=== PATIENT | female | born 1960 | race Hispanic/Latino ===

== ENCOUNTER 2016-08-18 16:25 | Emergency (ER) | payer OTHER ==
[~2016-08-18] VITALS: Ht 162.6 cm; Wt 110.5 kg
[~2016-08-18 16:25] MED LIST: ASPI-973 PO; ATOR20TA PO; AZIT500T5 PO; BENZ-12 PO; DULO20CA PO; FLUTICASONE PROPIONATE PO; GABA-502 PO; GLPZ5T PO; LANS30CA PO; LIDO700A6 TP; LISI-567 PO; LORA0.5T PO; METF500T4 PO; MUPI22OI2 TP; ONDA4TAB9 PO; OXYB5TAB35 PO; OXYC10TA8 PO; PRO AIR INHALER INH; TYLENOL 500 MG PO
[2016-08-18 16:28] VITALS: BP 152/86; PULSE 88; RESP 20; O2SAT 96
[2016-08-18] MEDS ORDERED: Ondansetron 2 mg/mL 2 mL Inj ONE ×2 (17:06→17:45)
--- NOTE | 2016-08-18 17:08 | ED.REPORT ---
HPI-Abd Pain F 40 and Over Date of Service Aug 18, 2016 ED Provider: Lucy Clarke History of Present Illness: 55-year-old female here for abdominal pain, nausea, vomiting onset earlier this afternoon. This morning she had chorizo and egg burrito, then many hours went by. AT about 3pm she was at a meeting and had an acute onset of diarrhea and nausea and vomiting. She then ate a little bit because she thought this could make her feel better. She then had another episode of vomiting and diarrhea. When she was vomiting she felt very lightheaded and like she wanted to pass out. She did not pass out. She has not tried oral intake since. She has not had a fever. She now complains of left sided abdominal pain. At the time of her vomiting started she had some acute onset chest pressure and pain. She also had acute onset of neck pain and head pain. She has had similar chest pain before and has been worked up and it never been her heart. She has been diagnosed with muscular pain in her chest and neck in the past and it feels similar to this. She has a history of diabetes, high blood pressure, hypercholesterolemia. No known sick contacts Nursing Notes Stated Complaint: VOMITING,DIARRHEA, CHEST PAIN Chief Complaint: General Complaint Nursing Notes Reviewed: Yes Allergies: Coded Allergies: Sulfa (Sulfonamide Antibiotics) (Verified Allergy, Unknown, UNKNOWN, 05/05) atenolol (Verified Allergy, Unknown, 05/05/16) fish oil (Verified Allergy, Unknown, UNKNOWN, 05/05/16) metoclopramide (Verified Allergy, Unknown, 05/05/16) naproxen (Verified Adverse Reaction, Severe, RASH BRAND NAME ALEVE ONLY, 05/05/16) hydromorphone (Verified Adverse Reaction, Intermediate, Rash, 05/05/16) ibuprofen (Verified Adverse Reaction, Intermediate, Rash BRAND NAME ADVIL ONLY, 05/05/16) morphine (Verified Adverse Reaction, Intermediate, Rash, 05/05/16) trimethoprim (Verified Adverse Reaction, Intermediate, Rash, 05/05/16) Scheduled ([flovent IH]) PO PRN ([Pro Air Inhaler]) 2 PUFFS INH PRN Aspirin (Aspirin) 81 Mg Tablet 81 MG PO DAILY Atorvastatin (Lipitor) 20 Mg Tablet 20 MG PO DAILY Azithromycin (Azithromycin) 500 Mg Tablet 500 MG PO DAILY Duloxetine (Cymbalta) 20 Mg Capsule 20 MG PO DAILY Gabapentin (Gabapentin) 300 Mg Capsule 600 MG PO HS Glipizide (Glipizide) 5 Mg Tablet 5 MG PO DAILY Lansoprazole (Lansoprazole) 30 Mg Capsule.dr 30 MG PO DAILY Lidocaine (Lidoderm) 700 Mg Adh..patch 1 PATCH TP UD Lisinopril (Lisinopril) 20 Mg Tablet 20 MG PO DAILY Metformin (Metformin) 500 Mg Tablet 500 MG PO NOON Metformin (Metformin) 500 Mg Tablet 1,000 MG PO AM AND HS Mupirocin (Mupirocin Ointment) 22 Gm Oint...g. 22 GM TP BID Oxybutynin Chloride ER (Ditropan XL) 5 Mg Tab.er.24 5 MG PO DAILY Scheduled PRN ([Tylenol 500 Mg]) 500 MG PO PRN PRN PRN For Pain Benzonatate (Tessalon Perle) 100 Mg Capsule 100 MG PO TID PRN PRN For Cough Lorazepam (Lorazepam) 0.5 Mg Tablet 0.5 MG PO TID PRN PRN For Anxiety Ondansetron ODT (Zofran ODT) 4 Mg Tablet 4 MG PO Q4H PRN PRN For Nausea Ondansetron ODT (Zofran ODT) 4 Mg Tablet 4 MG PO Q4H PRN PRN For Nausea oxyCODONE (oxyCODONE) 10 Mg Tablet 10 MG PO 5X DAY PRN PRN For Pain General Time Seen by MD: 16:56 Chief Complaint Abdominal pain, Diarrhea moderate, Nausea, Vomiting moderate Hx Obtained From: Patient Arrived By: Walk-in Sudden in Onset?: Yes Onset Occurred: 1 - 4 hours ago Symptom Duration: Waxes and wanes Progression since Onset: Intermittent Location: : LLQ: LUQ Radiation: : Back: Flank left: Flank right Severity: Current: Mild Severity: Maximum: Severe Associated with: Reports: Back pain, Chest pain, Diarrhea, Nausea, Vomiting, Denies: Fever Pertinent Negative: Pt denies other symptoms Recent Healthcare: Recent doctor visit Similar Sx Previous: Yes Past Medical History Past Medical History kidney stones Reports: Asthma, Diabetes mellitus, GERD, Hyperlipidemia, Hypertension Past Surgical History 2x back surgeries knee surgery Reports: Appendectomy, Cholecystectomy Smoking History Former Smoker Social History Alcohol Use: Denies alcohol use Drug Use: Denies drug use Other Social History: Good social support, Local resident Ambulatory Status Independent Review of Systems Basic Review of Systems Eyes: Vision NL, No discharge ENT: Hearing NL, No pain, No nasal congestion, No pharyngeal pain Hematologic: No bleeding, No bruising Endocrine: No cold intolerance, No heat intolerance, No weight gain, No weight loss Skin: No bruising, No rash, No itch Allergy / Immune: No allergy Neurologic: NL mental status, No weakness, No numbness Psychiatric: Normal thought content Constitutional: Denies: Chills, Fatigue, Fever Respiratory: Denies: Dyspnea on exertion, Non-productive cough, Shortness of breath, Wheezing Cardiovascular: Reports: Chest pain, Denies: Dyspnea on exertion, Edema GI: Reports: Abdominal pain, Diarrhea, Nausea, Vomiting, Denies: Constipation Female: Reports: Flank pain, Denies: Dysuria, Urinary frequency, Urinary urgency, Vaginal discharge Musculoskeletal: Reports: Back pain, Neck pain Complete sys rev & neg: except as marked. Physical Exam Vital Signs Vital Signs (First) Date Time Temp Pulse Resp B/P Pulse Ox O2 Delivery O2 Flow Rate FiO2 08/18/16 16:28 36.6 88 20 152/86 96 Room Air Initial VS: Reviewed, Vital signs normal Head / Eyes: Atraumatic, Normocephalic, PERRL ENT: Mucous membranes moist, Conjunctiva normal, No scleral icterus Neck: Supple, Non-tender, Full range of motion Lymphatic: No lymphadenopathy Extremities: Vascular intact, Neuro intact, No swelling, No tenderness Skin: Warm, Dry, No cyanosis Neurologic: Alert, Oriented, Nonfocal Psychiatric: Mood/affect normal, Behavior normal, Normal thought content General/Constitutional: Awake, Alert Respiratory / Chest: Breath sounds NL, Breath sounds = bilat, No respiratory distress, No rales, No rhonchi, No wheezing, No stridor Cardiovascular: Heart rate NL, Regular rhythm, Heart sounds NL, Peripheral circulation NL tender chest generalized Abdomen: Soft, McBurney's non-tender, No guarding, No rebound, BS normoactive, No distention, No hernia, No palpable mass, No pulsatile mass mild L upper and lower abd pain. +bilat cva tenderness Back: Inspection NL, No midline vertebral tend, No muscle spasm low back paraspinal msk tenderness, paracervical msk tender. Pt has FROM of neck. Pt has chronic low back pain Neck: Atraumatic, Supple, No meningismus, Full range of motion, No adenopathy Interpretation & Diagnostics Interpretation & Diagnostics: [phone] Patient Name: OLGA TRAN MR#: [id number] Location: SED Ordering Phys: Lucy Clarke [facility] Date of Service: 08/18/16 1735 PROCEDURE: X-RAY CHEST ONE VIEW, PORTABLE ([id number]) INDICATIONS: chest pain TECHNIQUE: One view of the chest was acquired. COMPARISON: Merged With [facility], CR, XR CHEST 2VW, 03/26/2016, 8:28. FINDINGS: Surgical changes and devices: None. Lungs and pleura: No pleural effusions or pneumothorax. Lungs are clear. Mediastinum: Mediastinal contours appear normal. Heart size is normal. Bones and chest wall: No suspicious bony lesions. Overlying soft tissues appear unremarkable. IMPRESSION: No acute process. Patient Name: OLGA TRAN MR#: [id number] Location: SED Ordering Phys: uLcy Clarke [facility] Date of Service: 08/18/16 1845 PROCEDURE: CT ABDOMEN AND PELVIS WITH CONTRAST ([id number]) INDICATIONS: llq abd pain TECHNIQUE: After the administration of intravenous contrast, 5 mm thick sections acquired from the diaphragm to the symphysis. 5 mm coronal and sagittal reformats were acquired. For radiation dose reduction, the following was used: automated exposure control, adjustment of mA and/or kV according to patient size. COMPARISON: Merged With [facility], CT, CT ABD PELVIS W CON, 01/11/2015, 1:23. Merged With [facility], CT, ABD/PELVIS W/CON (PNL), 11/20/2014, 17:35. FINDINGS: Image quality: Excellent. ABDOMEN: Lung bases: Lung bases are clear. Heart size is normal. Solid organs: Liver and spleen are normal in size and enhancement. Gallbladder is surgically absent. Biliary system is non dilated. Pancreas enhances normally. No adrenal nodules. Kidneys demonstrate normal size and enhancement, without hydronephrosis. Peritoneum and bowel: Small hiatal hernia. Bowel loops demonstrate normal wall thickness and caliber. No free fluid or air. Appendix not seen. No evidence of appendicitis. Nodes and vessels: No retroperitoneal or mesenteric adenopathy by size criteria. Aorta and inferior vena cava are normal in size. Miscellaneous: No ventral hernias. PELVIS: Genitourinary: Urinary bladder is decompressed. Miscellaneous: No inguinal hernias or adenopathy. Bones: No suspicious bony lesions. No vertebral body compression fractures. IMPRESSION: 1. No acute process. No explanation for left lower quadrant abdominal pain. 2. Appendix not seen. No evidence of appendicitis. Dictated by: Damien Ledezma M.D. on 08/18/2016 at 19:23 Approved by: Damien Ledezma M.D. on 08/18/2016 at 19:25 Lab Results Interpretation Result Diagram: 08/18/16 1700 08/18/16 1700 Test 08/18/16 17:00 08/18/16 19:42 White Blood Count 8.4th/mm3 (3.8-10.1) Red Blood Count 5.02mil/mm3 (3.90-5.20) Hemoglobin 13.4g/dL (12.0-15.6) Hematocrit 41.2% (35.0-46.0) Mean Corpuscular Volume 82.1fL (81-100) Mean Corpuscular Hemoglobin 26.7pg (27.0-35.0) Mean Corpuscular Hemoglobin Concent 32.5% (32.0-37.0) Red Cell Distribution Width 15.2% (12.3-15.4) Platelet Count 212bil/L (150-400) Neutrophils (%) (Auto) 74.1% (40-74) Lymphocytes (%) (Auto) 20.1% (14-46) Monocytes (%) (Auto) 4.2% (4-12) Eosinophils (%) (Auto) 1.1% (0-5) Basophils (%) (Auto) 0.4% (0-3) Sodium Level 140mEq/L (134-144) Potassium Level 4.1mEq/L (3.5-5.2) Chloride Level 103mEq/L (97-108) Carbon Dioxide Level 21mmol/L (18-29) Blood Urea Nitrogen 17mg/dL (6-24) Creatinine 0.65mg/dL (0.57-1.00) Estimat Glomerular Filtration Rate 135mL/min (>59) Glucose Level 247mg/dL (60-99) Calcium Level 8.9mg/dL (8.5-10.1) Magnesium Level 2.0mg/dL (1.6-2.6) Total Bilirubin 0.3mg/dL (0.0-1.2) Aspartate Amino Transf (AST/SGOT) 21U/L (0-50) Alanine Aminotransferase (ALT/SGPT) 22U/L (0-32) Alkaline Phosphatase 81U/L (25-150) Troponin T < 0.010ug/L (0.0-0.011) Total Protein 7.1g/dL (6.4-8.4) Albumin 3.7g/dL (3.4-5.0) Lipase 41U/L (13-60) Hold Su Top Tube Received (Received) Hold Urine Received (Received) Re-Eval/Medical Decision Med Decision/Clinical Course 1844- pt c/o her chronic back pain, and LLQ pain. cannot take dilaudid/morphine. can do toradol/oxycodone 10mg. will start with toradol. awaiting urine. UA with 30+ prot, 100+ gluc, trace blood. neg leucs. Denies dysuria. still LLQ pain 1999- discussed case with Dr. latonya liu. After his own evaluation agrees with discharge plan. Benign labs and CAT scan. will d/c home to monitor and f/u if pain returns/fevers/or worsening symptoms. LIkely abd strain from vomiting, possibly passed kidney stone. Discharge & Departure Shift Change Sign-Out Laboratory Evaluation: Lab evaluation discussed Imaging Studies: Imaging discussed Procedures: Results discussed Response to Therapy: Improved Primary Impression: Vomiting and diarrhea Additional Impressions: Lumbar back pain Chronicity: chronic Back pain laterality: left Sciatica presence: with sciatica Sciatica laterality: sciatica of left side Qualified Code: M54.42 - Lumbago with sciatica, left side Hematuria Diabetes mellitus Diabetes mellitus type: type 2 Diabetes mellitus complication status: with hyperglycemia Qualified Code: E11.65 - Type 2 diabetes mellitus with hyperglycemia Hypertension Hypertension type: essential hypertension Hypertension goal: unspecified goal Qualified Code: I10 - Essential (primary) hypertension Disposition: Home Discharge Condition All VS Reviewed: Yes Condition: Stable Patient Instructions: Acute Abdominal Pain (ED), Acute Diarrhea (ED) Additional Instructions: Monitor abdominal pain and return to ER if pain worsens, you get fevers, urinary symptoms, or severe vomiting or diarrhea. Otherwise treat your usual pain with pain meds as you see fit. Use Zofran as needed for nausea. Follow- up in 24 hours for recheck of your abdomen with your doctor. You need to recheck your urine as well with your PCP in the next 1-2 weeks.. Light diet as tolerated starting with fluids like water or chicken broth and gradually increasing to solid foods. Your exam was reassuring today but do not hesitate to return if things worsen or change. Referrals: Padmini Montes MD (PCP) EDSupervising Provider for APC: Sai Quinonez MD copies to: Sai Quinonez MD; Padmini Montes MD, Linnea K ARNP Aug 18, 2016 17:08
[2016-08-18 17:14] LABS: BASOPHILS % (AUTO) 0.4 % (0-3); EOSINOPHILS % (AUTO) 1.1 % (0-5); MONOCYTES % (AUTO) 4.2 % (4-12); Mean Corpuscular Hemoglobin 26.7 pg (27.0-35.0); Mean Corpuscular Volume 82.1 fL (81-100); NEUTROPHILS % (AUTO) 74.1 % (40-74); Platelet Count 212 bil/L (150-400)
[2016-08-18] MEDS ORDERED: 0.9% Sodium Chloride 1,000 ML IV ONE (17:35)
[2016-08-18 18:02] VITALS: BP 135/75; PULSE 83; RESP 16; O2SAT 97
--- NOTE | 2016-08-18 18:09 | DRSVH ---
PROCEDURE: X-RAY CHEST ONE VIEW, PORTABLE ([id number]) INDICATIONS: chest pain TECHNIQUE: One view of the chest was acquired. COMPARISON: [facility], CR, XR CHEST 2VW, 03/26/2016, 8:28. FINDINGS: Surgical changes and devices: None. Lungs and pleura: No pleural effusions or pneumothorax. Lungs are clear. Mediastinum: Mediastinal contours appear normal. Heart size is normal. Bones and chest wall: No suspicious bony lesions. Overlying soft tissues appear unremarkable. IMPRESSION: No acute process. Dictated by: Damien Ledezma M.D. on 08/18/2016 at 18:08 Approved by: Damien Ledezma M.D. on 08/18/2016 at 18:08
[2016-08-18 18:30] VITALS: BP 140/83; PULSE 76; RESP 16; O2SAT 97
--- NOTE | 2016-08-18 19:26 | DRSVH ---
PROCEDURE: CT ABDOMEN AND PELVIS WITH CONTRAST ([id number]) INDICATIONS: llq abd pain TECHNIQUE: After the administration of intravenous contrast, 5 mm thick sections acquired from the diaphragm to the symphysis. 5 mm coronal and sagittal reformats were acquired. For radiation dose reduction, the following was used: automated exposure control, adjustment of mA and/or kV according to patient kizzy johnson. COMPARISON: [facility], CT, CT ABD PELVIS W CON, 01/11/2015, 1:23. [facility], CT, ABD/PELVIS W/CON (PNL), 11/20/2014, 17:35. FINDINGS: Image quality: Excellent. ABDOMEN: Lung bases: Lung bases are clear. Heart size is normal. Solid organs: Liver and spleen are normal in size and enhancement. Gallbladder is surgically absent . Biliary system is non dilated. Pancreas enhances normally. No adrenal nodules. Kidneys demonstr ate normal size and enhancement, without hydronephrosis. Peritoneum and bowel: Small hiatal hernia. Bowel loops demonstrate normal wall thickness and caliber . No free fluid or air. Appendix not seen. No evidence of appendicitis. Nodes and vessels: No retroperitoneal or mesenteric adenopathy by size criteria. Aorta and inferior vena cava are normal in size. Miscellaneous: No ventral hernias. PELVIS: Genitourinary: Urinary bladder is decompressed. Miscellaneous: No inguinal hernias or adenopathy. Bones: No suspicious bony lesions. No vertebral body compression fractures. IMPRESSION: 1. No acute process. No explanation for left lower quadrant abdominal pain. 2. Appendix not seen. No evidence of appendicitis. Dictated by: Damien Ledezma M.D. on 08/18/2016 at 19:23 Approved by: Damien Ledezma M.D. on 08/18/2016 at 19:25
[2016-08-18] MEDS ORDERED: ONDA4TAB9 PO (20:26)
[2016-08-18 20:36] VITALS: BP 141/80; PULSE 76; RESP 16; O2SAT 96
== END 2016-08-18 20:37 | disposition home or self-care (01) ==
LOC: SED 16:25
DX: R11.10 Vomiting, unspecified (principal); R19.7 Diarrhea, unspecified; M54.42 Lumbago with sciatica, left side; R31.9 Hematuria, unspecified; E11.65 Type 2 diabetes mellitus with hyperglycemia; I10 Essential (primary) hypertension; R07.89 Other chest pain; J45.909 Unspecified asthma, uncomplicated; K21.9 Gastro-esophageal reflux disease without esophagitis; E78.5 Hyperlipidemia, unspecified; Z88.2 Allergy status to sulfonamides; Z88.8 Allergy status to other drugs, medicaments and biological substances; Z88.5 Allergy status to narcotic agent; Z88.6 Allergy status to analgesic agent; Z79.82 Long term (current) use of aspirin; Z79.84 Long term (current) use of oral hypoglycemic drugs; Z87.891 Personal history of nicotine dependence
CPT/HCPCS: 36415; 71010; 74177; 80053; 83690; 83735; 84484; 85025; 87804; 93005; 96361; 96374; 96375; 96376; 99285; J1885; J2405; J7030; Q9967

== ENCOUNTER 2016-08-26 21:27 | Emergency (ER) | payer OTHER ==
[~2016-08-26] VITALS: Ht 162.6 cm; Wt 109.1 kg
[2016-08-26 21:47] VITALS: BP 155/97; PULSE 82; RESP 20; O2SAT 98
--- NOTE | 2016-08-26 22:13 | ED.REPORT ---
HPI-Extremity Problem Lower Date of Service Aug 26, 2016 ED Provider: To Wilson MD Patient is a 55 year old female with a history of chronic back pain with 2x prior back surgeries, diabetes mellitus, and hypertension who presents to the ED complaining of left knee pain and swelling after a ground level fall this morning. Patient states that she was with a client working when the fall occurred and that she quickly needed to get back on her feet. The patient placed ice on her knee when she got home and used crutches to ambulate. However since that time her knee pain has increased in severity and now radiates up her leg. She reports pain with weight bearing. The patient denies sustaining any other injuries. The patient has a pain contract through Dr Montes for treatment of her chronic back pain. She took 10mg Oxycodone at 8pm this afternoon, taking 50mg daily. She states that this medication improved her pain a little, but she is still in severe pain. Nursing Notes Stated Complaint: SEVERE SWELLING LT LEG & EXCRUCIATING PAIN IN KNEE Chief Complaint: Extremity Trauma Nursing Notes Reviewed: Yes Allergies: Coded Allergies: Sulfa (Sulfonamide Antibiotics) (Verified Allergy, Unknown, UNKNOWN, ) atenolol (Verified Allergy, Unknown, 08/26/16) fish oil (Verified Allergy, Unknown, UNKNOWN, 08/26/16) metoclopramide (Verified Allergy, Unknown, 08/26/16) naproxen (Verified Adverse Reaction, Severe, RASH BRAND NAME ALEVE ONLY, 08/26/16) hydromorphone (Verified Adverse Reaction, Intermediate, Rash, 08/26/16) ibuprofen (Verified Adverse Reaction, Intermediate, Rash BRAND NAME ADVIL ONLY, 08/26/16) morphine (Verified Adverse Reaction, Intermediate, Rash, 08/26/16) trimethoprim (Verified Adverse Reaction, Intermediate, Rash, 08/26/16) Scheduled ([flovent IH]) PO PRN ([Pro Air Inhaler]) 2 PUFFS INH PRN Aspirin (Aspirin) 81 Mg Tablet 81 MG PO DAILY Atorvastatin (Lipitor) 20 Mg Tablet 20 MG PO DAILY Azithromycin (Azithromycin) 500 Mg Tablet 500 MG PO DAILY Duloxetine (Cymbalta) 20 Mg Capsule 20 MG PO DAILY Gabapentin (Gabapentin) 300 Mg Capsule 600 MG PO HS Glipizide (Glipizide) 5 Mg Tablet 5 MG PO DAILY Lansoprazole (Lansoprazole) 30 Mg Capsule.dr 30 MG PO DAILY Lidocaine (Lidoderm) 700 Mg Adh..patch 1 PATCH TP UD Lisinopril (Lisinopril) 20 Mg Tablet 20 MG PO DAILY Metformin (Metformin) 500 Mg Tablet 500 MG PO NOON Metformin (Metformin) 500 Mg Tablet 1,000 MG PO AM AND HS Mupirocin (Mupirocin Ointment) 22 Gm Oint...g. 22 GM TP BID Oxybutynin Chloride ER (Ditropan XL) 5 Mg Tab.er.24 5 MG PO DAILY Scheduled PRN ([Tylenol 500 Mg]) 500 MG PO PRN PRN PRN For Pain Benzonatate (Tessalon Perle) 100 Mg Capsule 100 MG PO TID PRN PRN For Cough Lorazepam (Lorazepam) 0.5 Mg Tablet 0.5 MG PO TID PRN PRN For Anxiety Ondansetron ODT (Zofran ODT) 4 Mg Tablet 4 MG PO Q4H PRN PRN For Nausea Ondansetron ODT (Zofran ODT) 4 Mg Tablet 4 MG PO Q4H PRN PRN For Nausea oxyCODONE (oxyCODONE) 10 Mg Tablet 10 MG PO 5X DAY PRN PRN For Pain General Time Seen by MD: 22:12 Chief Complaint Knee injury left Hx Obtained From: Patient Arrived By: Wheelchair Onset Occurred: 9 - 12 hours ago Symptom Duration: Since onset Location: : Knee left Quality: Painful Severity: Current: Severe Severity: Maximum: Severe Recent Healthcare: No recent doctor visit, No recent hospitalization Similar Sx Previous: No Past Medical History Past Medical History kidney stones Reports: Asthma, Diabetes mellitus, GERD, Hyperlipidemia, Hypertension Past Surgical History 2x back surgeries knee surgery Reports: Appendectomy, Cholecystectomy Smoking History Former Smoker Social History Alcohol Use: Denies alcohol use Drug Use: Denies drug use Other Social History: Good social support, Local resident Ambulatory Status Independent Review of Systems Musculoskeletal: Reports: Extremity pain, Extremity swelling, Joint pain, Joint swelling Neurologic: Denies: Change LOC, Headache Complete sys rev & neg: except as marked. Physical Exam Initial Vital Signs Vital Signs (First) Date Time Temp Pulse Resp B/P Pulse Ox O2 Delivery O2 Flow Rate FiO2 08/26/16 21:47 36.1 82 20 155/97 98 Room Air Initial VS: Reviewed, Vital signs abnormal Head / Eyes: Atraumatic, Normocephalic, PERRL ENT: Conjunctiva normal, No scleral icterus Neck: Supple, Full range of motion Abdomen / GI: Soft, Non-tender Upper Extremities: Vascular intact, Neuro intact, No swelling, No tenderness Neurologic: Alert, Oriented, Nonfocal Psychiatric: Mood/affect normal, Behavior normal, Normal thought content Lower Extremity / Pelvis / MS: Neurologic intact, Vascular intact Left Knee: Positive: Joint effusion present (tight), Swelling present..., Tenderness present..., Negative: Deformity present Ankle / Foot: Neurologic intact, Vascular intact General/Constitutional: Awake, Alert Appearance / Presentation: Positive: In pain, Obese, Uncomfortable Respiratory / Chest: No respiratory distress, No stridor Cardiovascular: Heart rate NL, Cap refill not delayed, Peripheral circulation NL Skin: Color NL, Warm, Dry Interpretation & Diagnostics CT KNEE - LEFT CONCLUSION: Limited study due to patient motion. No clear-cut fractures are identified. Tricompartmental osteoarthritis. Knee joint effusion. Radiologist: Jaron Guy MD 08/27/2016 - 1:22:37 AM PDT X-Ray Interpretation Xray Interpretation: IMPRESSION: Arthritis. Cortical irregularlity of the medial aspect of the lateral tibial plateau. X-Ray Ordered: Knee left Interpretation / Wet Read by: Wet read ED physician Re-Eval/Medical Decision Med Decision/Clinical Course 55-year-old female who injured her knee. She now has a large effusion. She is able to ambulate but with difficulty. X-ray shows some deformity of the lateral tibial plateau so a CT scan was done. There is no fracture evident that she does have multiple areas of arthritis. There is no instability of the knee on physical examination. She was fitted with a knee immobilizer and will follow up with her primary doctor for further evaluation of the effusion and likely internal knee injury. Source of Hx: Old records Re-Evaluation/Progress #1: Time of Eval: 22:15 Re-Evaluation/Progress Note: Rechecked the patient. The x-rays were inconclusive. A CT scan of her knee will be ordered. Re-Evaluation/Progress #2: Time of Eval: 01:58 Patient Status: Condition improved Re-Evaluation/Progress Note: The CT scan only showed arthritic changes. She has an effusion and may have a soft tissue injury. She will likely need an MRI. The patient will likely need a knee replacement in the future. The patient has an appointment with her PCP on the and can discuss further pain medication at that time. Patient understands and agrees with the plan to be discharged home. Discharge instructions and follow-up discussed. All questions were addressed. Return to the ED warnings given. Counseled Regarding: Diagnosis, Need for follow-up, When/why to return to ED Discharge & Departure Impression: Primary Impression: Effusion of left knee Additional Impression: Tricompartment osteoarthritis of left knee Disposition: Home Discharge Condition All VS Reviewed: Yes Condition: Stable Patient Instructions: Knee Effusion (ED), Osteoarthritis (ED) Additional Instructions: You have severe arthritis of the knee, but no bony fracture or dislocation is noted. Your effusion(fluid on the knee) would tend to indicate that there is a injury to the internal soft tissue structures of the knee. You can increase your pain medication by one or 2 tablets a day, talk to your regular doctor about this. Ice and elevation. Use the knee immobilizer to stabilize the knee so you can walk on it. You will need further evaluation, likely to include an MRI of the knee to further define the actual injury. Referrals: Padmini Montes MD (PCP) Scribe Attestation Portions of this note were transcribed by Thao Patel. I, Dr. Wilson personally performed the history, physical exam and medical decision-making; I reviewed and confirmed the accuracy of the information in the transcribed note. Signed by: Mallika Lucas, 08/27/2016 0237 copies to: Padmini Montes MD, Howard L MD Aug 26, 2016 22:13 Thao Patel Aug 26, 2016 22:33
[2016-08-26] MEDS ORDERED: fentaNYL-PF 50 mCg/mL 2 mL Inj IM ONE (22:45)
[2016-08-26] MEDS ORDERED: 0.9% Sodium Chloride 1,000 ML IV ONE (23:52)
[2016-08-26] MEDS ORDERED: Ondansetron 2 mg/mL 2 mL Inj IV PRN (23:55)
[2016-08-26] MEDS ORDERED: fentaNYL-PF 50 mCg/mL 2 mL Inj IVPUSH PRN (23:55)
[2016-08-27 02:37] VITALS: BP 150/89; PULSE 67; RESP 16; O2SAT 95
--- NOTE | 2016-08-27 08:10 | DRSVH ---
PROCEDURE: X-RAY LEFT KNEE, THREE VIEWS ([id number]) INDICATIONS: LEFT KNEE GAVE OUT, SWELLING/UNABLE TO BEAR WEIGHT TECHNIQUE: 3 views of the knee were acquired. COMPARISON: [facility], , KNEE 3VW (LT), 08/28/2013, 21:55. FINDINGS: Bones: No fractures or dislocations. No suspicious bony lesions. Diffuse degenerative spurring, and mild/moderate medial joint space narrowing Soft tissues: Large joint effusion IMPRESSION: No fracture. Degenerative changes as above. Large joint effusion. Dictated by: Lamont Feng M.D. on 08/27/2016 at 8:03 Approved by: Lamont Feng M.D. on 08/27/2016 at 8:08
--- NOTE | 2016-08-27 13:51 | DRSVH ---
PROCEDURE: CT KNEE LEFT W/O CONTRAST (99164) INDICATIONS: trauma, Xray inconclusive TECHNIQUE: Noncontrast 1-1.5 mm axial sections acquired from the mid-patella to the proximal tibia, with coronal and sagittal reformats. COMPARISON: [facility], CR, XR KNEE 3VW LT, 08/26/2016, 22:16. FINDINGS: Image quality: Patient motion is present as well as significant artifact within the proximal tibia an d fibula.. There is moderate lateral and patellofemoral compartment narrowing, mild lateral compartment narrowin g. There is prominent spurring of the patella as well as at the periarticular surfaces. Osteopenia is present as well as a moderate effusion. IMPRESSION: 1. No visualized fracture. If clinical concern persists for stress or ligamentous injury, MRI may be obtained. 2. Moderate effusion. 3. Prominent tricompartmental joint changes most suggestive of osteoarthritis. Dictated by: Kristin Sheth M.D. on 08/27/2016 at 13:45 Approved by: Kristin Sheth M.D. on 08/27/2016 at 13:49
== END 2016-08-27 02:39 | disposition home or self-care (01) ==
LOC: SED 21:27
DX: M25.462 Effusion, left knee (principal); W18.39XA Other fall on same level, initial encounter; Y93.89 Activity, other specified; Y92.89 Other specified places as the place of occurrence of the external cause; Y99.8 Other external cause status; M17.9 Osteoarthritis of knee, unspecified; I10 Essential (primary) hypertension; J45.909 Unspecified asthma, uncomplicated; K21.9 Gastro-esophageal reflux disease without esophagitis; E78.5 Hyperlipidemia, unspecified; E11.9 Type 2 diabetes mellitus without complications; Z79.82 Long term (current) use of aspirin; Z79.84 Long term (current) use of oral hypoglycemic drugs; Z87.891 Personal history of nicotine dependence; Z88.2 Allergy status to sulfonamides; Z88.5 Allergy status to narcotic agent; Z88.8 Allergy status to other drugs, medicaments and biological substances; Z91.02 Food additives allergy status
CPT/HCPCS: 73562; 73700; 96361; 96372; 96374; 96375; 99285; J2405; J3010; J7030

== ENCOUNTER → 2017-02-06 | Day surgery (SDC) | payer OTHER ==
[2017-02-06] VITALS (11 sets, daily range): BP systolic 90–152; BP diastolic 49–94; PULSE 85–104; RESP 11–18; O2SAT 92–97
[~2017-02-06] VITALS: Ht 162.6 cm; Wt 105.2 kg
[~2017-02-06] MED LIST changes: +ACET500C49 PO; +ALBU8.5H2 INHALATION; -AZIT500T5 PO; +Albuterol-Ipratropium 3 mL Inhalation Solution NEB PRN; +BECL8.7A6 INHALATION; -BENZ-12 PO; +BENZ200C44 PO; +CLIN60LO2 TOPICAL; +DIAZ5SOL4 PO; +DIPH25CA6 PO; +Dexamethasone 4 mg/mL Inj IVPUSH PRN; +EPHEDrine Sulfate 50 mg/mL Inj IVPUSH PRN; -FLUTICASONE PROPIONATE PO; -LIDO700A6 TP; +Lactated Ringer's 1,000 ML IV SCH; +Lactated Ringer's 500 ML IV PRN; +Lidocaine 1%-Epi 1:100,000 20 mL Inj INFILTRATE ONE; +MELO-253 PO; +MUPI22OI2 TOP; -MUPI22OI2 TP; -ONDA4TAB9 PO; -OXYB5TAB35 PO; +Ondansetron 2 mg/mL 2 mL Inj IVPUSH PRN; +Ondansetron 2 mg/mL 2 mL Inj ONE; +PARO10TA24 PO; -PRO AIR INHALER INH; +Phenylephrine 10,000 mCg/mL Inj IVPUSH PRN; +Propofol 10,000 mCg/mL 20 mL Inj ONE; -TYLENOL 500 MG PO; +ZOF8 PO; +[UNRECOGNIZED DRUG - OTHER] PO; +fentaNYL-PF 50 mCg/mL 2 mL Inj IVPUSH PRN; +fentaNYL-PF 50 mCg/mL 2 mL Inj ONE; +oxyCODONE-Acetamin 5-325 mg Tablet PO PRN
[2017-02-06] MEDS: Lactated Ringer's 1,000 ML IV SCH ×2 (08:10→09:58)
--- NOTE | 2017-02-06 09:13 | PCM.HPANE ---
Patient Data Surgeon Admitting Provider: Attending Provider:Eddi Rivera DO Primary Care Physician:Padmini Montes MD Other Provider:Taya Pittman Anesthesia Reason for Visit Left Carpal Tunnel Syndrome Ht/WT & BMI Height (Feet): 5 Height (Inches): 4.00 Weight (Kilograms): 105.230 Body Mass Index 39.00 Allergies Coded Allergies: Sulfa (Sulfonamide Antibiotics) (Verified Allergy, Unknown, UNKNOWN, ) atenolol (Verified Allergy, Unknown, 08/26/16) fish oil (Verified Allergy, Unknown, fatigue, 01/10/17) metoclopramide (Verified Allergy, Unknown, 08/26/16) naproxen (Verified Adverse Reaction, Severe, RASH BRAND NAME ALEVE ONLY, 08/26/16) hydromorphone (Verified Adverse Reaction, Intermediate, Rash, 08/26/16) ibuprofen (Verified Adverse Reaction, Intermediate, Rash BRAND NAME ADVIL ONLY, 08/26/16) morphine (Verified Adverse Reaction, Intermediate, Rash, 08/26/16) trimethoprim (Verified Adverse Reaction, Intermediate, Rash, 08/26/16) Past Anesthesia History Anesthesia History: Denies:: Abnormal Airway, Anesthesia Reactions, Difficult Intubation, Fam Anesthesia Reaction, Fam Malignant Hypertherm, Malignant Hyperthermia Diabetes History Hx Diabetes?: Yes Type of Diabetes: Type II Glycemic Control: Insulin & Oral Medication Current Bedside Blood Glucose: 228 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) Medications Blood Thinner: Aspirin Hypertension Medication: Yes Home Meds Incl Beta Emani: No Reported Medications Clindamycin Phosphate (Clindamycin Phosphate Topical)60 Ml Lotion Topical Daily #60 02/06/17 Beclomethasone Dipropionate (Qvar)8.7 Gm Aer.w.adap2 Puff INHALATION DAILY #9 02/06/17 [Butalbitalasacaff] No Conflict Check1 Tablet PO PRN #20 02/06/17 Glipizide 5 Mg Tablet5 Mg PO DAILY #45 02/06/17 diphenhydrAMINE HCl (Benadryl)25 Mg Xnvsjkw36 Mg PO Q4 PRN For Itching Ref 0 02/06/17 Lorazepam 0.5 Mg Tablet0.5 Mg PO TID PRN For Anxiety Ref 0 02/06/17 Ondansetron (Zofran)8 Mg Tablet8 Mg PO Q4H PRN For Nausea 01/10/17 Albuterol HFA (Proair HFA)8.5 Gm Hfa.aer.ad2 Puffs INHALATION Q4H PRN For Shortness of Breath #1 INHALER 01/10/17 Paroxetine (Paxil)10 Mg Tab10 Mg PO HS Ref 0 01/10/17 oxyCODONE 10 Mg Itzqnx22 Mg PO 5X DAY PRN For Pain Ref 0 01/10/17 Mupirocin (Mupirocin Ointment)22 Gm Oint...g.1 Applic TOP TID #1 TUBE Ref 0 01/10/17 Metformin 500 Mg Ibxvwo291 Mg PO NOON Ref 0 01/10/17 Metformin 500 Mg Tablet1,000 Mg PO BID Ref 0 01/10/17 Meloxicam 15 Mg Sqkamp02 Mg PO DAILY 30 Days Ref 0 01/10/17 Lisinopril 20 Mg Zyvtso95 Mg PO DAILY 30 Days Ref 0 01/10/17 Atorvastatin (Lipitor)20 Mg Kicygq70 Mg PO DAILY Ref 0 01/10/17 Lansoprazole 30 Mg Capsule.dr30 Mg PO BID #30 CAPSULE Ref 0 01/10/17 Gabapentin 300 Mg Ruapbqr706 Mg PO TID Ref 0 01/10/17 Duloxetine (Cymbalta)20 Mg Ujrfmnl43 Mg PO DAILY Ref 0 01/10/17 Aspirin 81 Mg Dseakq85 Mg PO DAILY Ref 0 01/10/17 Acetaminophen 500 Mg Capsule1,000 Mg PO Q6H PRN For Pain 01/10/17 Discontinued Reported Medications Lorazepam 0.5 Mg Tablet1 Mg PO TID PRN For Anxiety Ref 0 01/10/17 Diazepam Solution 5 Mg/5 Ml Solution1 Ml PO TID PRN For Anxiety Ref 0 01/10/17 Benzonatate 200 Mg Foxfilo150 Mg PO TID PRN For Congestion 01/10/17 History History of ENT Problems?: Yes HEENT History: Denies:: Abnormal Airway Cataracts Difficult Intubation Dysphagia Glaucoma Hearing Problem Sinus Problem TMJ Denture Type: None Teeth Condition: Within Normal Limits Other HEENT Pertinent History: pt with stomatitis and mouth sores- seen in at PCP office on 02/05/17- was cleared by her primary care provider for surgery next day, had solumedrol injection done Hx of Heart Problems?: No Cardiovascular History: Positive for:: Heart Murmur (as child, no longer heard ) Hypertension Denies:: AICD Atrial Fibrillation Cardiac Surgery Chest Pain Congestive Heart Failure Edema Irregular Heartbeat Pacemaker Thrombophlebitis Valvular Heart Disease Other Cardiac History: hx of chronic iron deficiency, microcytosis without anemia- being monitored by hematology- last iron infusions were done 2013 Hx of Respiratory Problem?: Yes Respiratory History: Positive for:: Asthma Use of C-PAP Machine Use of Inhalers / NEBS Denies:: COPD Chest Surgery Cough Dyspnea Emphysema Hemoptysis Oxygen Administration Pneumonia Pulmonary Embolism Tuberculosis Hx Neurologic Problems?: Yes Neurological History: Positive for:: Dizziness (COMES AND GOES) Headaches (take fiorinal- occurs every other day) Denies:: Alzheimer's Disease CVA Dementia Multiple Sclerosis Parkinson's Disease Seizures TIA Hx of GI Problems?: Yes Hx of Problems?: Yes Genitourinary History: Denies:: Kidney Stones Urinary Tract Infection Female Hx: Denies:: Currently (tubal--) Endometriosis Pelvic Inflammatory Problems with Breasts? Skin History: Positive for:: History Skin Disorders? (open wound left arm- mosquito bites- inflammed around elbow) Denies:: Pressure Ulcers Hx Musculoskeletal Problems?: Yes Musculoskeletal History: Positive for:: Back Injury (2 back surgery- lumbar continued weakness, pain- last surg 2012) Fibromyalgia Osteoarthritis Denies:: Joint Replacement Musculoskeletal Trauma (left carpal tunnel current admission problem) Myasthenia Gravis Systemic Lupus Hx of Psycho/Social Problems?: Yes Psycho Social History: Positive for:: Anxiety Hx Depression Denies:: Bipolar Disorder Hx Surgeries?: Yes (BACK, KNEE, VIANNEY, APPY) Hx Any Other Health Problems?: Yes Other History: Positive for:: Endocrine Disease Hospitalization Denies:: Cancer Thyroid Disease History Blood Transfusions: Positive for:: Accept Blood Products? Denies:: Blood Transfuse Reaction Blood Transfusions Hx Diabetes: YesBedside Blood Glucose: 228 Hx Alcohol Use: YesAlcoholic Drinks Per Day: rarely- holidays- 1-2 times yearlyHx Substance Use: No Smoking Status: Former Smoker Have You Smoked inLast 12 mo: No Stop/Bang Treated for Sleep Apnea?: Yes Do You Have a CPAP Machine?: Yes S-Snoring: Do You Snore Loudly: Yes T-Tired: feel tired, fatigued: Yes O-Obsered: Observed not breath: Yes P-Blood Pressure: treated: Yes B- Body Mass Index > 35 kg/m2: Yes A- Age over 50: Yes N- Neck Large Circumference: Yes G- Gender Male: No SHA Total Score: 7 Risk Assessment Category Category 1A: Patient has history of documented sleep apnea, and HAS NOT received any narcotic, sedative or anesthesia administration during this stay. Category 1B: Patient has history of documented sleep apnea, and HAS received any narcotic , sedative or anesthesia administration during this stay Category 2: Patient has SUSPECTED Obstructive Sleep Apnea, and HAS received any narcotic , sedative or anesthesia administration during this stay. Category 3: Patient has SUSPECTED Obstructive Sleep Apnea and HAS NOT received narcotic, sedative or anesthesia administration during this stay. Category 4: Outpatient in Procedural Areas with known sleep apnea or who screen positive for High Risk via the STOP/BANG questionnaire. Exam Exam Vital Signs Vital Signs Date Time Temp Pulse Resp B/P Pulse Ox O2 Delivery O2 Flow Rate FiO2 02/06/17 08:13 36.5 89 18 152/94 96 Room Air General Appearance: Alert, Oriented X3, Cooperative HEENT/AIRWAY: MP 2 Lungs: Clear to Auscultation Heart: Exam Unremarkable Meds/Labs/Diagnostics Admission Meds Current Medications Lactated Ringer's (Lr) 1,000 ml @ 120 mls/hr Q8H20M IV Last administered on t 08:10; Start 02/06/17 at 05:00; Stop 02/06/17 at 13:19 Bedside Blood Glucose: 228 Plan Impression Patient chart reviewed, patient interviewed and anesthestic plan with risks, benefits, and alternatives discussed, and informed consent obtained. ASA Physical Status: ASA2 Mod Systemic Disease Anesthetic Plan: GA Bene/Risks/Altern/Consents: Yes HP Complete Prior to Induction: Yes Faizan Bonilla MD Feb 06, 2017 09:13
[2017-02-06] MEDS: fentaNYL-PF 50 mCg/mL 2 mL Inj IVPUSH PRN ×2 (11:04→11:34)
--- NOTE | 2017-02-06 13:33 | PCM.ANEP1 ---
Post Anesthesia PACU Phase 1 Assessment Vital Signs Vital Signs Date Time Temp Pulse Resp B/P Pulse Ox O2 Delivery O2 Flow Rate FiO2 02/06/17 12:10 36.1 86 16 102/60 94 Nasal Cannula 2 02/06/17 11:50 85 14 114/57 96 Nasal Cannula 1 02/06/17 11:45 86 11 112/57 95 Nasal Cannula 1 02/06/17 11:30 36.4 90 17 119/57 92 Nasal Cannula 2 02/06/17 11:10 89 13 90/49 97 NEB 10 02/06/17 11:00 97 17 103/59 96 Simple Mask 10 02/06/17 10:55 89 12 106/60 96 Simple Mask 10 02/06/17 10:50 98 18 116/59 96 Simple Mask 10 02/06/17 10:45 104 13 104/59 96 Simple Mask 10 02/06/17 10:41 36.5 120/56 02/06/17 08:13 36.5 89 18 152/94 96 Room Air Anesthetic Administered: GA Level of Alertness: Awake, talking Pain: Yes Nausea or Vomiting: No CV Function & Hydration Stable: Yes Airway Device: Lungs: Clear to Auscultation Dermatome Level: Full Sensation PACU Phase 2 Assessment Complications: No Follow up Care: No Patient Instructions Provided: N/A Faizan Bonilla MD Feb 06, 2017 13:33
--- NOTE | 2017-02-07 13:07 | OP ---
[address] [address] OPERATIVE REPORT PATIENT: OLGA TRAN : 1960 MR#: [id number] ADMIT: 02/06/2017 JOB ID: [id number] DATE OF SURGERY: 02/06/2017 PREOPERATIVE DIAGNOSIS(ES): Left recurrent carpal tunnel syndrome. POSTOPERATIVE DIAGNOSIS(ES): Left recurrent carpal tunnel syndrome. PROCEDURE: 1. Left revision carpal tunnel release. 2. Hypothenar fat graft harvesting with adjacent tissue transfer to the radial flap of the transverse carpal ligament. SURGEON: Eddi Rivera DO. ANESTHESIA: General. HISTORY: The patient is a pleasant 56-year-old female with recurrent carpal tunnel syndrome. She had a previous carpal tunnel release performed at an outlying facility and presented to me with recurrent symptoms. She had failed renewed conservative treatment and with electrodiagnostic findings confirming the carpal tunnel syndrome. I discussed with her the risks, benefits, alternatives, indications for a revision carpal tunnel release with fat graft interposition. She understood the risks include, but are not limited to, neurovascular injury, tendon injury, infection, failure to resolve the patient's preoperative symptoms, stiffness, persistent pain which may require further intervention. The patient had all questions answered. Consent was signed and placed in the chart. PROCEDURE IN DETAIL: The patient was brought to the operative suite and placed supine on the operating table. Surgical time-out was performed. Everyone in the room was in agreement. After appropriate anesthesia was obtained, a left upper arm tourniquet was applied and the left upper extremity was prepped and draped in sterile fashion. Left upper extremity was then exsanguinated and tourniquet inflated to 250 mmHg. A standard 2 cm longitudinal incision was made in line with the radial aspect of the ring finger, the ulnar aspect of the palmaris longus. The incision was kept distal to the wrist crease and proximal to Esposito cardinal line. Subcutaneous tissues were dissected with bipolar electrocautery utilized to maintain hemostasis throughout the procedure. Palmar fascia was first identified and incised longitudinally in line with the skin incision followed by exposure of the underlying transverse carpal ligament. Transverse carpal ligament was then released in its entirety including the distal extent of the antebrachial fascia. Copious irrigation was then performed. The hypothenar fat was then freed up from the surrounding soft tissues and pivoted at its base and rearranged with transfer to the radial flap of the transverse carpal ligament to prevent recurrence. Copious irrigation was then performed followed by closure of the skin with 5-0 nylon simple interrupted fashion. The patient was then placed in a bulky soft dressing. ESTIMATED BLOOD LOSS: Less than 1 cc. COMPLICATIONS: None. DISPOSITION: The patient tolerated the procedure well. Anesthesia was reversed, and the patient was transferred to PACU for recovery. POSTOPERATIVE PLAN: The patient will follow up in the office in two weeks. We will remove the patient's sutures at that time and have her start working on range of motion and scar mobilization.
== END | disposition home or self-care (01) ==
LOC: SAS 07:45
PROVIDERS: ATTEND Orthopaedic Surgery
DX: G56.02 Carpal tunnel syndrome, left upper limb (principal); E11.9 Type 2 diabetes mellitus without complications; D50.9 Iron deficiency anemia, unspecified; J45.909 Unspecified asthma, uncomplicated; I10 Essential (primary) hypertension; E66.01 Morbid (severe) obesity due to excess calories; Z68.41 Body mass index [BMI] 40.0-44.9, adult; Z79.84 Long term (current) use of oral hypoglycemic drugs; Z79.82 Long term (current) use of aspirin; Z79.51 Long term (current) use of inhaled steroids
CPT/HCPCS: 20926; 64721; J2250; J2405; J2704; J3010; J7120; J7620